=== PATIENT | female | born 1945 | race Hispanic/Latino ===

== ENCOUNTER → 2018-09-10 | Day surgery (SDC) | payer OTHER ==
[~2018-09-10] MED LIST: AMLODIPINE BESYL5 MG PO; CALCIUM CARBON500 MG PO; CARVEDILOL3.125 MG PO; FENTANYL CITRATE/PF 100MCG/2 ML INJ ONE; LINZESS; LISINOPRIL10 MG PO; LORAZEPAM0.5 MG PO; MONTELUKAST SOD10 MG PO; PROPOFOL IV EMULSION 10 MG/ML 50 ML VIAL ONE; SERTRALINE HCL50 MG PO
--- OUTSIDE RECORDS SUMMARY | 2018-09-10 06:07 | XMS REPORT | Continuity of Care Document ---
Author Author Alonso sanchez Organization Interface Address Unknown Phone Unavailable Problems Problem Status Onset Date Classification Date Reported Comments Source Z12.31 - ENCNTR SCREEN MAMMOGRAM FOR MA Active 11/18/2016 [facility] [place] V76.11 - SCREEN MAMMOGRA Active 06/17/2013 [facility] [place] 473.9 - CHRONIC SINUSIT Active 11/27/2011 [facility] [place] Medications Medication Details Route Status Patient Instructions Ordering Provider Order Date Source Allergies, Adverse Reactions, Alerts Substance Category Reaction Severity Reaction type Status Date Reported Comments Source Immunizations Immunization Date Given Site Status Last Updated Comments Source Results Order Name Results Value Reference Range Date Interpretation Comments Source Breast Mammo Scrn PRUDENCE incl CAD MA Breast Mammo Scrn PRUDENCE incl CAD MA BILATERAL DIGITAL SCREENING MAMMOGRAM WITH CAD: 09/08/2018 CLINICAL: Z12.31 Encounter For Screening Mammogram For Malignant Neoplasm Of Breast/Z12.31 Encounter For Screening Mammogram For Malignant Neoplasm Of Breast. Current study was evaluated with a Computer Aided Detection (CAD) system. COMPARISON:Comparison is made to exams dated: 12/16/2016 mammogram - [facility], 12/08/2015 mammogram, 12/07/2014 mammogram, and 12/10/2013 mammogram. TECHNIQUE: Mammographic views were obtained using digital acquisition. Current study was also evaluated with a Computer Aided Detection (CAD) system. FINDINGS: There are scattered fibroglandular densities in both breasts. There are benign calcifications in both breasts. No significant masses, calcifications, or other findings are seen in either breast. There has been no significant interval change. IMPRESSION: BENIGN RECOMMENDATION:There is no mammographic evidence of malignancy. A 1 year screening mammogram is recommended.(09/09/2019) This exam was interpreted at [id number] for MORALES Moore 15. Professional services are provided by the [facility] Division of Diagnostic Imaging. Dorita sewell/parveen:09/08/2018 15:20:12 Internet Media Planner(s): Leslie Kaufman RT(R)(M), [facility] letter sent: BI-RADS 1/2 Mammogram BI-RADS: 2 Benign 09/08/2018 - - Read by: Dorita Thakur MD Dictated Date/time: 09/08/18 15:20 Electronically Signed by: Dorita Thakur MD 09/08/18 15:20 FINAL REPORT [facility] Bone Density DXA [employer] MA Bone Density DXA [employer] MA BONE DENSITY ASSESSMENT: 09/08/2018 CLINICAL DATA: Post menopausal and clinical risk for osteoporosis. Z13.820- Screening for osteoporosis. Z13.820 Encounter For Screening For Osteoporosis/Z13.820 Encounter For Screening For Osteoporosis COMPARISON: 12/16/2016 Left hip using a Hologic unit from [facility] with reported normal fracture risk, BMD of 0.904g/cm2, T-score of -0.30, and Z-score of 1.00. 12/16/2016 Right hip using a Hologic unit from [facility] with reported medium fracture risk, BMD of 0.783g/cm2, T-score of -1.30, and Z-score of 0.10. 12/16/2016 AP L2-L4 region of spine using a Hologic unit from [facility] with reported high fracture risk, BMD of 0.756g/cm2, T-score of -2.90, and Z-score of -0.80. FINDINGS: Bone density evaluation was performed 09/08/2018 on the right femur neck using a Hologic unit. The BMD average for the exam is 0.720 g/cm2. The T-score is -1.20 and the Z-score is 0.50. This matches the World Health Organization's criteria for osteopenia and places the patient at a medium risk for fracture. An additional bone density evaluation was performed 09/08/2018 on the left femur neck using a Hologic unit. The BMD average for the exam is 0.655 g/cm2. The T- score is -1.70. This matches the World Health Organization's criteria for osteopenia and places the patient at a medium risk for fracture. An additional bone density evaluation was performed 09/08/2018 on the right hip using a Hologic unit. The BMD average for the exam is 0.816 g/cm2. The T-score is -1.00 and the Z-score is 0.40. Since the previous similar exam of 12/16/2016, there has been a +0.033 or +4.2% change in the BMD value which represents no significant interval change in bone density. This matches the World Health Organization's criteria for normal bone density and places the patient within normal limits of fracture risk. An additional bone density evaluation was performed 09/08/2018 on the left hip using a Hologic unit. The BMD average for the exam is 0.909 g/cm2. The T-score is -0.30 and the Z-score is 1.10. Since the previous similar exam of 12/16/2016, there has been a +0.005 or +0.6% change in the BMD value which represents no significant interval change in bone density. This matches the World Health Organization's criteria for normal bone density and places the patient within normal limits of fracture risk. An additional bone density evaluation was performed 09/08/2018 on the AP L2-L4 region of spine using a Hologic unit. The BMD average for the exam is 0.809 g/cm2. The T-score is -2.50 and the Z-score is -0.20. Since the previous similar exam of 12/16/2016, there has been a +0.053 or +7.0% change in the BMD value which represents no significant interval change in bone density. This matches the World Health Organization's criteria for osteoporosis and places the patient at a high risk for fracture. IMPRESSION: OSTEOPOROSIS Patient is at high risk for fracture. Patient consult w/primary care provider is recommended. This exam was interpreted at [id number] for MORALES Moore 15. Mine Matamoros M.D. ms/penrad:09/09/2018 12:25:58 Internet Media Planner(s): Leslie RICHARDSON(R)(M), [facility] 09/08/2018 - - Read by: Mine Matamoros MD Dictated Date/time: 09/09/18 12:25 Electronically Signed by: Mine Matamoros MD 09/09/18 12:25 FINAL REPORT [facility] Shoulder series DX Shoulder series DX EXAMINATION: Right shoulder series HISTORY: - M25.511 Pain in right shoulder; right acromioclavicular osteoarthritis FINDINGS: 2 to 3 views of the right shoulder are performed without comparison. There are no acute fractures or dislocations. The glenohumeral joint space is normal. There is minimal acromioclavicular osteoarthritis. IMPRESSION: 1. Minimal right acromioclavicular osteoarthritis. 03/18/2017 - - Read by: Fermin Everett MD Dictated Date/time: 03/18/17 14:26 Electronically Signed by: Fermin Everett MD 03/18/17 14:27 FINAL REPORT [facility] Bone Density DXA Dual Energy MA Bone Density DXA [employer] MA - Bone Density DXA [employer] MA BONE DENSITY EVALUATION: 12/16/2016 CLINICAL DATA: Post menopausal. FINDINGS: Bone density evaluation was performed 12/16/2016 on the AP L2-L4 region of spine using a Hologic unit. The BMD average for the exam is 0.756 g/cm2. The T-score is -2.90 and the Z-score is -0.80. This matches the World Health Organization's criteria for osteoporosis and places the patient at a high risk for fracture. An additional bone density evaluation was performed 12/16/2016 on the right femur neck using a Hologic unit. The BMD average for the exam is 0.673 g/cm2. The T-score is -1.60. This matches the World Health Organization's criteria for osteopenia and places the patient at a medium risk for fracture. An additional bone density evaluation was performed 12/16/2016 on the right hip using a Hologic unit. The BMD average for the exam is 0.783 g/cm2. The T-score is -1.30 and the Z-score is 0.10. This matches the World Health Organization's criteria for osteopenia and places the patient at a medium risk for fracture. An additional bone density evaluation was performed 12/16/2016 on the left femur neck using a Hologic unit. The BMD average for the exam is 0.659 g/cm2. The T- score is -1.70 and the Z-score is -0.10. This matches the World Health Organization's criteria for osteopenia and places the patient at a medium risk for fracture. An additional bone density evaluation was performed 12/16/2016 on the left hip using a Hologic unit. The BMD average for the exam is 0.904 g/cm2. The T-score is -0.30 and the Z-score is 1.00. This matches the World Health Organization's criteria for normal bone density and places the patient within normal limits of fracture risk. IMPRESSION: OSTEOPOROSIS Patient is at high risk for fracture. Professional services are provided by the [facility] Division of Diagnostic Imaging. This exam was dictated and interpreted by [id number] for MORALES Moore. Brian Webster M.D., cm/penrad:12/16/2016 14:22:59 Internet Media Planner: Winnie RICHARDSON (R)(Isa), [facility] 12/16/2016 - - Read by: Ry Dockery MD Dictated Date/time: 12/16/16 14:22 Electronically Signed by: Ry Dockery MD 12/16/16 14:22 FINAL REPORT [facility] Breast Mammo Scrn PRUDENCE incl CAD MA Breast Mammo Scrn PRUDENCE incl CAD MA AMENDMENT: 01/01/2017 Dorita Thakur M.D. Previous outside mammograms dated 12/08/2015 Mammogram, 12/07/2014 Mammogram and 12/10/2013 Mammogram have been received. No significant change from previous exam noted. Annual screening mammogram is recommended. Amended BI-RADS: 2 Benign letter sent: Comp Normal - BREAST MAMMO SCRN PRUDENCE INCL CAD MA BILATERAL DIGITAL SCREENING MAMMOGRAM WITH CAD: 12/16/2016 CLINICAL: Z12.31 Encounter For Screening Mammogram For Malignant Neoplasm Of Breast. Current study was evaluated with a Computer Aided Detection (CAD) system. No prior exams were available for comparison. There are scattered fibroglandular densities in both breasts. There are benign calcifications in both breasts. No significant masses, calcifications, or other findings are seen in either breast. IMPRESSION: BENIGN There is no mammographic evidence of malignancy. A 1 year screening mammogram is recommended. Professional services are provided by the [facility] Division of Diagnostic Imaging. Dorita Thakur M.D. ak/penrad:12/27/2016 13:16:17 Internet Media Planner: Leslie Kaufman RT(Ronny)(M), [facility] [place] This exam was dictated and interpreted by [id number] at [facility]. letter sent: Normal exam Mammogram BI-RADS: 2 Benign 12/16/2016 - - Read by: Dorita Thakur MD Dictated Date/time: 01/01/17 13:06 Electronically Signed by: Dorita Thakur MD 01/01/17 13:06 FINAL REPORT - - Read by: Dorita Thakur MD Dictated Date/time: 12/27/16 13:16 Electronically Signed by: Droita Thakur MD 12/27/16 13:16 FINAL REPORT [facility] [place] Chest 2 views DX Chest 2 views DX EXAM: Chest 2 views DX HISTORY: I10 Essential (primary) hypertension COMPARISON: None The heart size is normal and the lungs are clear. There is no pleural effusion or pneumothorax. No gross skeletal abnormality. IMPRESSION: No acute abnormality. 11/14/2016 - - Read by: Delma Posey MD Dictated Date/time: 11/14/16 15:04 Electronically Signed by: Delma Posey MD 11/14/16 15:04 FINAL REPORT [facility] [place] Vital Signs Vital Sign Value Date Comments Source Encounters Location Location Details Encounter Type Encounter Number Reason For Visit Attending Provider ADM Date DC Date Status Source OD [id number] 473.9 - CHRONIC SINUSIT NON PHYSICIAN 11/27/2011 Active MH [facility] [place] [facility] [place] [id number] 11/14/2016 11/15/2016 [facility] [place] [facility] [place] [facility] [id number] Spivey Schmidt 12/16/2016 12/17/2016 MH [facility] [place] [facility] [place] Out[facility] [id number] [facility] 03/18/2017 03/19/2017 MH [facility] [place] Procedures Procedure Code Date Perfomer Comments Source
--- OUTSIDE RECORDS SUMMARY | 2018-09-10 06:07 | XMS REPORT | Summary of Care ---
Author Author [facility] [place] Organization [facility] [place] Address Unknown Phone Unavailable Encounter HQ Donnantr_marcell(FIN) [id number] Date(s): 12/16/16 - 12/16/16 [facility] [place] [address] [place] [phone] Discharge Disposition: Home or Self Care Attending Physician: Eddi Schmidt MD Vital Signs No data available for this section Problem List No data available for this section Allergies, Adverse Reactions, Alerts No data available for this section Medications No data available for this section Results No data available for this section Immunizations No data available for this section Procedures No data available for this section Social History No data available for this section Assessment and Plan No data available for this section
--- OUTSIDE RECORDS SUMMARY | 2018-09-10 06:07 | XMS REPORT | Summary of Care ---
Author Author [facility] [place] Organization [facility] [place] Address Unknown Phone Unavailable Encounter HQ Donnantr_marcell(FIN) [id number] Date(s): 03/18/17 - 03/18/17 [facility] [place] [address] [place] [phone] Discharge Disposition: Home or Self Care Attending [...]
--- OUTSIDE RECORDS SUMMARY | 2018-09-10 06:07 | XMS REPORT | Clinical Summary ---
Author Author [facility] Organization [facility] Address Unknown Phone Unavailable Care Team Providers Care Mass Spectrometry Specialist Name Role Phone PCP Unavailable Allergies Comments Active Allergy Reactions Severity Noted Date hyperkalemia Spironolactone Other Medium 04/08/2008 Medications End Date Status Medication Sig Dispensed Refills Start Date Active CALCIUM 500 WITH D 500 MG None Entered 0 (1,250 MG)-400 UNIT TAB Active nitroGLYCERIN (NITROSTAT) Dissolve 1 100 tablet 0 0.4 mg sublingual tablet under 4 tabletIndications: CAD the tongue (coronary artery disease) every 5 minutes as needed, up to 3 times. If chest pain persists, call 911. Active Nebulizer Accessories by 1 Kit 0 KitIndications: Cough Misc.(Non-Guanaco 5 g; Combo Route) route. Active albuterol (PROAIR HFA) 90 Inhale 2 25.5 g 4 mcg/actuation Puffs by 5 inhalerIndications: mouth every 4 Asthmatic bronchitis, hours as Cough, Wheeze, Shortness needed for of breath Wheezing or Shortness of Breath. Active amLODIPine (NORVASC) 5 mg Take 1 tablet 90 tablet 3 tabletIndications: by mouth 6 Essential hypertension daily For hypertension. Active atorvastatin (LIPITOR) 20 Take 1 tablet 90 tablet 3 mg tabletIndications: by mouth at 6 Mixed hyperlipidemia bedtime nightly. Active lisinopril (PRINIVIL, Take 1 tablet 90 tablet 3 ZESTRIL) 10 mg by mouth 6 tabletIndications: daily. Medication refill, Essential hypertension, benign Active carvedilol (COREG) 12.5 Take 1 tablet 180 tablet 3 mg tabletIndications: by mouth 2 6 Medication refill, times daily Essential hypertension, (with meals). benign Active montelukast (SINGULAIR) Take 1 tablet 90 tablet 3 10 mg tabletIndications: by mouth at 6 Asthmatic bronchitis, bedtime severe persistent, with nightly. acute exacerbation Active Nebulizer & Compressor 1 Device by 1 Device 0 For Neb DeviIndications: Misc.(Non-Guanaco 6 Cough, Asthmatic g; Combo bronchitis, severe Route) route persistent, with acute 4 times exacerbation daily. Active albuterol (PROVENTIL) 2.5 Inhale 3 mL 300 mL 3 mg /3 mL (0.083 %) by mouth 6 nebulizer every 4 hours solutionIndications: as needed for Cough, Asthmatic Wheezing or bronchitis, severe Shortness of persistent, with acute Breath. exacerbation Active benzonatate (TESSALON Take 2 75 capsule 0 PERLES) 100 mg capsules by 6 capsuleIndications: Cough mouth 3 times daily as needed for Cough. Active codeine-guaiFENesin Take 5 mL by 240 mL 0 (CHERATUSSIN AC) 10-100 mouth 4 times 6 mg/5 mL syrupIndications: daily as Cough needed for Cough. Active omeprazole (PRILOSEC) 20 Take 2 180 capsule 1 mg delayed release capsules by 7 capsuleIndications: mouth daily. Gastroesophageal reflux disease with esophagitis Active budesonide-formoterol Inhale 2 30.6 g 3 (SYMBICORT) 160-4.5 Puffs by 7 mcg/actuation mouth 2 times inhalerIndications: daily. Asthmatic bronchitis, unspecified asthma severity, uncomplicated Active albuterol (VENTOLIN Inhale 2 8.5 g 5 HFA,PROVENTIL HFA,PROAIR Puffs by 7 HFA) 90 mcg/actuation mouth 4 times inhaler daily as needed for Wheezing. Active naproxen (NAPROSYN) 375 Take 1 tablet 30 tablet 2 mg tabletIndications: by mouth 2 7 Musculoskeletal pain times daily (with meals). Active sertraline (ZOLOFT) 25 mg Take 1 tablet 90 tablet 2 tabletIndications: by mouth 7 Anxiety daily For depression. Active linaclotide (LINZESS) 145 Take by 0 mcg cap mouth. Status Hospital, Clinic, or Ordered Dose Route Frequency Start End Date Other Facility Date Administered Medication Active polyethylene glycol 3350 17 g OR 2 TIMES DAILY 10/28/19 (GLYCOLAX) oral packet 17 18 g Active Problems Problem Noted Date Palpitation 03/15/2014 Nephrolithiasis 12/15/2008 Hematuria 11/05/2008 Overview: CT abdomen left nephrolithiasis non-obstructing Nonspecific abnormal finding in stool contents 10/11/2008 Anxiety state, unspecified 11/30/2007 Abnormal mammogram, unspecified 08/20/2007 Other and unspecified hyperlipidemia 05/26/2007 Post herpetic neuralgia 01/01/2007 Essential hypertension, benign Other abnormal glucose Metabolic syndrome Asthma Allergic rhinitis Acid reflux Obesity Elevated hemoglobin A1c Encounters Care Team Description Date Type Specialty Parish Dawkins, Fellow() Gastroesophageal reflux disease, esophagitis presence not specified (Primary Dx); Constipation, unspecified constipation type; Bloating 10/28/2017 Office Visit Gastroenterology after 09/09/2017 Immunizations Name Dates Previously Given Next Due Albuterol 0.083% (3ml) 09/24/2011, 03/29/2009 Albuterol 0.83% 3ml 02/23/2015 Inhalant Herpes Zoster Vaccine In 10/31/2016 Clinic Influenza Vaccine 07/22/2016, 10/27/2014, 06/22/2012, 10/22/2010, 08/08/2008, 06/30/2006, 08/21/2005, 10/07/2002, 09/30/2000, 07/10/1999, 09/05/1997, 06/30/1996, 08/19/1995, 07/23/1991 Ipratropium 0.02t (2.5ml) 09/24/2011 PPD 03/20/1994 PPV 23 Pneumococcal 02/21/2014 Polysaccaride Pneumococcal 13-valent 07/22/2016 conj 0.5 mL injection Td Tetanus, diphtheria 06/04/2002 Toxoids Vaccine Tdap Tetanus, diphtheria, 10/20/2013 acellular pertussis Vaccine Triamcinolone 40mg/ml Inj 03/29/2009 Family History Medical History Relation Name Comments Cancer Mother lymphoma Arthritis Sister Asthma Sister Relation Name Status Comments Brother Alive x2 Father prostate (Age 62) Mother Alive Sister Alive x6 Sister Social History Date Tobacco Use Types Packs/Day Years Used Never Smoker Smokeless Tobacco: Never Used Tobacco Cessation: Counseling Given: Yes Alcohol Use Drinks/Week oz/Week Comments No Sex Assigned at Date Recorded Not on file Industry Job Start Date Occupation Not on file Not on file Not on file Travel End Travel History Travel Start No recent travel history available. Last Filed Vital Signs Time Taken Vital Sign Reading 10/28/2017 1:02 PM CHILD MONITOR Blood Pressure 131/80 10/28/2017 1:02 PM CHILD MONITOR Pulse 61 10/28/2017 1:02 PM CHILD MONITOR Temperature 36.4 C (97.6 F) 10/28/2017 1:02 PM CHILD MONITOR Respiratory Rate 18 - Oxygen Saturation - - Inhaled Oxygen - Concentration 10/28/2017 1:02 PM CHILD MONITOR Weight 78.9 kg (174 lb) 10/28/2017 1:02 PM CHILD MONITOR Height 147.3 cm (4' 10") 10/28/2017 1:02 PM CHILD MONITOR Body Mass Index 36.37 Plan of Treatment Health Maintenance Due Date Last Done Comments Breast Cancer Scrn 12/07/2016 12/08/2015, 12/07/2014, 12/10/2013, (Yearly) Additional history exists CORONARY ARTERY DISEASE 08/06/2017 08/06/2016, 10/24/2015, 11/04/2014, AGE 18 AND UP Additional history exists Colorectal Cancer Scrn 11/06/2017 11/06/2016, 10/11/2008, 02/11/2005, Annual (FIT/FOBT) Age 50 Additional history exists to 75 IMM Influenza Seasonal 06/22/2018 06/22/2012 Oct to November (>/=19 yrs) IMM Pneumococcal Age 67 Completed 02/23/2015 (Previously completed - and Up External) Results Not on fileafter 09/09/2017 Insurance Type Payer Benefit Subscriber ID Effective Phone Address Plan / Dates Group [facility] xxxxxxxxx 2015-P [phone] [address] MEDICARE resent [id number] [place] [address] [place] MEDICA[place] [id number] xxxxxxxxx 2016-P [phone] [address] resent [id number] MEDICARE [place], [place] BENEFICIAR [id number] Y
--- OUTSIDE RECORDS SUMMARY | 2018-09-10 06:07 | XMS REPORT | Summary of Care ---
Author Author [facility] [place] Organization [facility] [place] Address Unknown Phone Unavailable Encounter HQ Encntr_aliul(FIN) [id number] Date(s): 11/14/16 - 11/14/16 [facility] Out[facility] - [place] [address] [phone] Discharge Disposition: Home or Self Care Attending [...]
--- OUTSIDE RECORDS SUMMARY | 2018-09-10 06:07 | XMS REPORT ---
Author Author [facility] Address Unknown Phone Unavailable Care Team Providers Care Neon Electrician Name Role Phone Unavailable Unavailable Problems This patient has no known problems. Allergies, Adverse Reactions, Alerts This patient has no known allergies or adverse reactions. Medications This patient has no known medications. Encounters Start Date/Time End Date/Time Encounter Type Admission Type Attending Clinicians Care Facility Care Department Encounter ID 2017-10-28 13:02:38 2017-10-28 13:02:38 Outpatient [facility] [id number]
[2018-09-10 08:42] LABS: BASOPHILS # (AUTO) 0.1 (0.0-0.1); BASOPHILS % 0.7 % (0.0-1.0); EOSINOPHILS # (AUTO) 0.4 (0.0-0.4); EOSINOPHILS % 4.6 % (0.0-6.0); HEMATOCRIT 37.7 % (34.2-44.1); HEMOGLOBIN 12.7 g/dL (12.0-16.0); LYMPHOCYTES # (AUTO) 2.9 (1.0-3.2); LYMPHOCYTES % 31.7 % (18.0-39.1); MEAN CORPUSCULAR HEMOGLOBIN 30.5 pg (28-32); MEAN CORPUSCULAR HGB CONC 33.7 g/dL (31-35); MEAN CORPUSCULAR VOLUME 90.6 fL (81-99); MONOCYTES # (AUTO) 0.7 (0.2-0.8); MONOCYTES % 7.3 % (4.4-11.3); NEUTROPHILS # (AUTO) 5.1 (2.1-6.9); NEUTROPHILS % 55.5 % (38.7-80.0); PLATELET COUNT 321 x10e3/uL (140-360); RED BLOOD COUNT 4.16 x10e6/uL (3.6-5.1); RED CELL DISTRIBUTION WIDTH 13.5 % (11.7-14.4)
[2018-09-10 09:45] VITALS: BP 131/73
== END | disposition home or self-care (01) ==
LOC: OR 06:04
PROVIDERS: ATTEND Internal Medicine Gastroenterology
DX: K29.70 Gastritis, unspecified, without bleeding (principal); K21.0 Gastro-esophageal reflux disease with esophagitis; K44.9 Diaphragmatic hernia without obstruction or gangrene; Z71.3 Dietary counseling and surveillance; I10 Essential (primary) hypertension; E66.9 Obesity, unspecified; G47.33 Obstructive sleep apnea (adult) (pediatric); F41.9 Anxiety disorder, unspecified; F32.9 Major depressive disorder, single episode, unspecified; Z88.8 Allergy status to other drugs, medicaments and biological substances; Z68.35 Body mass index [BMI] 35.0-35.9, adult; Z95.0 Presence of cardiac pacemaker; Z80.0 Family history of malignant neoplasm of digestive organs
CPT/HCPCS: 36415; 43239; 85025; 88305; 88312; 88342; 93005

== ENCOUNTER → 2019-11-04 | Outpatient (CLI) | payer MEDICARE, OTHER ==
[~2019-11-04] MED LIST changes: +CLOPIDOGREL75 MG PO; -FENTANYL CITRATE/PF 100MCG/2 ML INJ ONE; -PROPOFOL IV EMULSION 10 MG/ML 50 ML VIAL ONE; +VITAMIN C
[2019-11-04 13:11] LABS: BASOPHILS % 0.4 % (0.0-1.0); EOSINOPHILS # (AUTO) 0.2 (0.0-0.4); EOSINOPHILS % 2.6 % (0.0-6.0); HEMATOCRIT 37.4 % (34.2-44.1); HEMOGLOBIN 11.9 g/dL (12.0-16.0); LYMPHOCYTES # (AUTO) 2.7 (1.0-3.2); LYMPHOCYTES % 29.1 % (18.0-39.1); MEAN CORPUSCULAR HEMOGLOBIN 29.3 pg (28-32); MEAN CORPUSCULAR HGB CONC 31.8 g/dL (31-35); MEAN CORPUSCULAR VOLUME 92.1 fL (81-99); MONOCYTES # (AUTO) 0.8 (0.2-0.8); MONOCYTES % 8.8 % (4.4-11.3); NEUTROPHILS # (AUTO) 5.4 (2.1-6.9); NEUTROPHILS % 58.8 % (38.7-80.0); PLATELET COUNT 286 x10e3/uL (140-360); RED BLOOD COUNT 4.06 x10e6/uL (3.6-5.1); RED CELL DISTRIBUTION WIDTH 13.8 % (11.7-14.4)
== END ==
LOC: RAD 05:00 → EDSTATUS 11-05 06:30
PROVIDERS: ATTEND Internal Medicine Gastroenterology
DX: Z01.818 Encounter for other preprocedural examination (principal); Z12.11 Encounter for screening for malignant neoplasm of colon; I10 Essential (primary) hypertension; E66.9 Obesity, unspecified; Z71.3 Dietary counseling and surveillance
CPT/HCPCS: 36415; 85025; 93005

== ENCOUNTER → 2022-07-18 | Day surgery (SDC) | payer MEDICARE, OTHER ==
[2022-07-16 12:11] LABS: BASOPHILS # (AUTO) 0.1 (0.0-0.1); BASOPHILS % 0.8 % (0.0-1.0); EOSINOPHILS # (AUTO) 0.4 (0.0-0.4); EOSINOPHILS % 4.5 % (0.0-6.0); HEMATOCRIT 41.2 % (34.2-44.1); HEMOGLOBIN 12.7 g/dL (12.0-16.0); MEAN CORPUSCULAR HEMOGLOBIN 30.4 pg (28-32); MEAN CORPUSCULAR HGB CONC 30.8 g/dL (31-35); MEAN CORPUSCULAR VOLUME 98.6 fL (81-99); MONOCYTES # (AUTO) 0.7 (0.2-0.8); NEUTROPHILS # (AUTO) 5.2 (2.1-6.9); NEUTROPHILS % 55.5 % (38.7-80.0); PLATELET COUNT 255 x10e3/uL (140-360); RED BLOOD COUNT 4.18 x10e6/uL (3.6-5.1); RED CELL DISTRIBUTION WIDTH 13.7 % (11.7-14.4)
[~2022-07-18] MED LIST changes: +ASPIRIN81 MG PO; +FAMOTIDINE20 MG PO; +FARXIGA5 MG PO; +LINZESS145 MCG PO; +LORATADINE10 MG PO; +MULTI-VITAMIN1 EACH PO; +NEURONTIN100 MG PO; +SYMBICORT 16010.2 GM INH; +ULTRAM50 MG PO
[2022-07-18 08:10] VITALS: BP 123/69
== END | disposition home or self-care (01) ==
LOC: OR 05:00
PROVIDERS: ATTEND Internal Medicine Gastroenterology
DX: R63.0 Anorexia (principal); K29.50 Unspecified chronic gastritis without bleeding; K44.9 Diaphragmatic hernia without obstruction or gangrene; K21.9 Gastro-esophageal reflux disease without esophagitis; R63.4 Abnormal weight loss; E11.22 Type 2 diabetes mellitus with diabetic chronic kidney disease; I12.9 Hypertensive chronic kidney disease with stage 1 through stage 4 chronic kidney disease, or unspecified chronic kidney disease; N18.30 Chronic kidney disease, stage 3 unspecified; J45.909 Unspecified asthma, uncomplicated; E78.5 Hyperlipidemia, unspecified; F41.9 Anxiety disorder, unspecified; F32.A Depression, unspecified; Z88.8 Allergy status to other drugs, medicaments and biological substances; Z01.810 Encounter for preprocedural cardiovascular examination; Z01.812 Encounter for preprocedural laboratory examination; Z79.02 Long term (current) use of antithrombotics/antiplatelets; Z79.82 Long term (current) use of aspirin; Z79.899 Other long term (current) drug therapy; Z95.0 Presence of cardiac pacemaker
CPT/HCPCS: 36415; 43239; 82948; 85025; 88305; 88312; 88342; 93005